=== PATIENT | female | born 1995 | race Caucasian/White ===

== ENCOUNTER 2020-03-29 08:00 | Outpatient (CLI) | payer MEDICAID, OTHER ==
--- NOTE | 2020-03-29 13:11 | XRAY Report ---
PROCEDURE: Wrist 3 View LT INDICATIONS: LEFT WRIST PAIN TECHNIQUE: 3 views of the wrist were acquired. COMPARISON: None. FINDINGS: Bones: There is a subtle lucency along the radial styloid concerning for nondisplaced fracture. This is noted best on the oblique view. There is mild negative ulnar variance. No additional fractures. Al ignment is normal. Joint spacing is maintained. Soft tissues: Mild soft tissue stone throughout the wrist. IMPRESSION: Likely nondisplaced radial styloid fracture. Reviewed by: Kiran Clay DO on 03/29/2020 12:10 PM [place] Approved by: Kiran Clay DO on 03/29/2020 12:10 PM [place] Station ID: [id number]
== END 2020-03-29 23:59 | disposition home or self-care (01) ==
LOC: DI.S 08:00
PROVIDERS: ATTEND Physician Assistant
DX: R93.6 Abnormal findings on diagnostic imaging of limbs (principal)